=== PATIENT | female | born 1980 | race Caucasian/White ===

== ENCOUNTER 2016-09-29 23:30 | Outpatient (CLI) | payer OTHER | END 2016-09-29 23:31 | disposition critical access hospital (66) | DX: R10.9 Unspecified abdominal pain (principal); R11.2 Nausea with vomiting, unspecified | CPT/HCPCS: A0425; A0427 ==

== ENCOUNTER 2016-09-29 23:56 | Emergency (ER) | payer OTHER ==
[2016-09-30] MEDS ORDERED: PROMETHAZINE 25 MG/1 ML VIAL ONE (00:11)
[2016-09-30] MEDS ORDERED: HYDROmorphone 1 MG/ML SYRINGE ONE (00:12)
[2016-09-30] MEDS: PROMETHAZINE INJ 25 MG in SODIUM CHLORIDE 0.9% 50 ML IV STA (00:15)
[2016-09-30] MEDS: SODIUM CHLORIDE 0.9% 1,000 ML IV ONE (00:16)
[2016-09-30] MEDS: HYDROmorphone 1 MG/ML SYRINGE IVP STA (00:16)
[2016-09-30 00:31] LABS: BASOPHILS % (AUTO) 0.3 %; EOSINOPHILS # (AUTO) 0.1 10^3/uL (0.0-0.7); EOSINOPHILS % (AUTO) 0.5 %; HCT - HEMATOCRIT 38.3 % (37.0-47.0); HGB - HEMOGLOBIN 13.2 g/dL (12.0-16.0); LYMPHOCYTES # (AUTO) 0.4 10^3/uL (1.5-3.5); LYMPHOCYTES % (AUTO) 3.9 %; MEAN CORPUSCULAR HEMOGLOBIN 29.4 pg (27.0-31.0); MEAN CORPUSCULAR HGB CONC 34.6 g/dL (32.0-36.0); MEAN CORPUSCULAR VOLUME 85.2 fL (81.0-99.0); MEAN PLATELET VOLUME 9.9 fL (7.9-10.8); MONOCYTES # (AUTO) 0.5 10^3/uL (0.0-1.0); MONOCYTES % (AUTO) 4.8 %; NEUTROPHILS # (AUTO) 10.1 10^3/uL (1.5-6.6); NEUTROPHILS % (AUTO) 90.5 %; RED BLOOD COUNT 4.49 10^6/uL (4.20-5.40); RED CELL DISTRIBUTION WIDTH 13.1 % (12.0-15.0); UNCORRECTED WHITE BLOOD COUNT 11.1 x10^3/uL; WHITE BLOOD COUNT 11.1 x10^3/uL (4.8-10.8)
[2016-09-30 00:47] LABS: ALBUMIN/GLOBULIN RATIO 1.8 (1.0-2.2); BILIRUBIN,TOTAL 2.8 mg/dL (0.2-1.0); CALCIUM 8.6 mg/dL (8.5-10.3); CREATININE 0.8 mg/dL (0.4-1.0); POTASSIUM 3.6 mmol/L (3.5-5.0); TOTAL PROTEIN 6.9 g/dL (6.7-8.2)
[2016-09-30 02:18] LABS: BILIRUBIN,URINE NEGATIVE (NEGATIVE); PH,URINE 5.5 PH (5.0-7.5)
[2016-09-30 02:21] LABS: HCG UR QUAL NEGATIVE; UA CHARGE (STRIP ONLY) YES; UR CULTURE IF IND NOT INDICATED
[2016-09-30 02:48] VITALS: BP 119/75
--- NOTE | 2016-09-30 02:54 | ED Physician Documentation ---
PD HPI NVD - Stated complaint Stated Complaint: ABD PAIN - Chief complaint Chief Complaint: Abd Pain - History obtained from History obtained from: Patient - History of Present Illness Timing - onset: Today Timing - duration: Hours Timing - details: Abrupt onset, Still present Associated symptoms: Abdominal pain, Dizzy Contributing factors: No: Sick contact, Bad food, Travel, Recent antibiotics, Alcohol use, Anticoagulated, Diabetes Improved by: Laying still Similar symptoms before: No diagnosis (The patient has had similar episodes X 2 requiring IV fluid and antiemetic.) Recently seen: Not recently seen Review of Systems Constitutional: reports: Sweats. 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 - Present Medications Home Medications: Ambulatory Orders Medication Instructions Recorded Confirmed Promethazine [Phenergan] 25 - 50 mg PO Q6H PRN #10 tab 09/30/16 - Allergies Allergies/Adverse Reactions: Allergies Allergy/AdvReac Type Severity Reaction Status Date / Time morphine AdvReac Nausea Verified 09/30/16 00:01 - Social History Does the pt smoke?: No Smoking Status: Never smoker Does the pt drink ETOH?: No Does the pt have substance abuse?: No - Immunizations Immunizations are current?: Yes - POLST Patient has POLST: No PD ED PE NORMAL - Vitals Vital signs reviewed: Yes (tachy ) - General General: Alert and oriented X 3, Well developed/nourished, Other (A very uncomfortable appearing female with tears to the eyes clutching her abdomen and an emesis bag. ) - HEENT HEENT: Atraumatic, PERRL, EOMI - Neck Neck: Supple, no meningeal sign - Cardiac Cardiac: No murmur, Other - Respiratory Respiratory: No respiratory distress, Clear bilaterally - Abdomen Abdomen: Soft, Other (mild generalized tenderness more to the epigastrium and not to the RUQ) - Back Back: No CVA TTP, No spinal TTP - Derm Derm: Normal color, Warm and dry, No rash - Extremities Extremities: No deformity, No edema - Neuro Neuro: No motor deficit, No sensory deficit - Psych Psych: Normal mood Results - Vitals Vitals: Vital Signs - 24 hr 09/29/16 09/30/16 23:57 02:46 Temperature 37 C 37.4 C Heart Rate 105 H 76 Respiratory 20 16 Rate Blood Pressure 118/62 119/75 O2 Saturation 100 99 Oxygen O2 Source Room air - Labs Labs: Laboratory Tests 09/30/16 09/30/16 09/30/16 00:26 00:26 00:26 WBC 11.1 H RBC 4.49 Hgb 13.2 Hct 38.3 MCV 85.2 MCH 29.4 MCHC 34.6 RDW 13.1 Plt Count 153 MPV 9.9 Neut # 10.1 H Lymph # 0.4 L [place] # 0.5 Eos # 0.1 Baso # 0.0 Absolute Nucleated RBC 0.00 Nucleated RBCs 0.0 Sodium 139 Potassium 3.6 Chloride 109 Carbon Dioxide 21 Anion Gap 9.0 BUN 18 Creatinine 0.8 Estimated GFR (MDRD) 82 L Glucose 142 H Calcium 8.6 Total Bilirubin 2.8 H Direct Bilirubin 0.3 AST 19 ALT 14 Alkaline Phosphatase 31 L Total Protein 6.9 Albumin 4.4 Globulin 2.5 Albumin/Globulin Ratio 1.8 Lipase 18 L Urine Color Urine Clarity Urine pH Ur Specific [place] Urine Protein Urine Glucose (UA) Urine Ketones Urine Occult Blood Urine Nitrite Urine Bilirubin Urine Urobilinogen Ur Leukocyte Esterase Ur Microscopic Review Urine Culture Comments Urine HCG, Qual 09/30/16 02:10 WBC RBC Hgb Hct MCV MCH MCHC RDW Plt Count MPV Neut # Lymph # [place] # Eos # Baso # Absolute Nucleated RBC Nucleated RBCs Sodium Potassium Chloride Carbon Dioxide Anion Gap BUN Creatinine Estimated GFR (MDRD) Glucose Calcium Total Bilirubin Direct Bilirubin AST ALT Alkaline Phosphatase Total Protein Albumin Globulin Albumin/Globulin Ratio Lipase Urine Color YELLOW Urine Clarity CLEAR Urine pH 5.5 Ur Specific [place] 1.025 Urine Protein NEGATIVE Urine Glucose (UA) NEGATIVE Urine Ketones 15 H Urine Occult Blood NEGATIVE Urine Nitrite NEGATIVE Urine Bilirubin NEGATIVE Urine Urobilinogen 0.2 (NORMAL) Ur Leukocyte Esterase NEGATIVE Ur Microscopic Review NOT INDICATED Urine Culture Comments NOT INDICATED Urine HCG, Qual NEGATIVE PD MEDICAL DECISION MAKING - ED course Complexity details: reviewed results, re-evaluated patient, considered differential, d/w patient ED course: 36 y/o female with sudden onset of diarrhea and vomiting with abdominal pain presents to the ED very uncomfortable. She had some zofran in the ambulance and this did not help and it has not helped in the past. She is given IV phenergan and diluadid and improves dramatically. She is given a liter of saline as well. She has elevated bili isolated and her bili is fractionated. Departure - Departure Disposition: 01 Home, Self Care Clinical Impression: Gastroenteritis, Gilbert syndrome Condition: Stable Instructions: ED Gastroenteritis Viral Follow-Up: Carina Hoffman MD [Primary Care Provider] - Prescriptions: Promethazine [Phenergan] 25 - 50 mg PO Q6H PRN #10 tab PRN Reason: Nausea / Vomiting
== END 2016-09-30 03:54 | disposition home or self-care (01) ==
LOC: EDUNIT# → SUPCPDRO 23:56 → ED 23:56
DX: K52.9 Noninfective gastroenteritis and colitis, unspecified (principal); E80.4 Gilbert syndrome
CPT/HCPCS: 36415; 80053; 81001; 81003; 81025; 82247; 82248; 83690; 85025; 87086; 96365; 96375; 99284